=== PATIENT | male | born 1980 | race Hispanic/Latino ===

== ENCOUNTER 2017-05-19 19:38 | Emergency (ER) | payer BC ==
[2017-05-19 20:03] VITALS: BP 110/63; PULSE 88; RESP 16; TEMP 97.7; O2SAT 97
--- NOTE | 2017-05-19 20:40 | ED PDOC ---
HPI: Male Pain Time Seen by Provider: 05/19/17 20:13 Chief Complaint (Nursing): Male Genitourinary Chief Complaint (Provider): pain to right testicle History Per: Patient Additional Complaint(s): 36-year-old male presents to emergency department with pain to right testicle 5 days. Patient states the pain has come and gone for the past week. Today the pain is severe. He went to urgent care first and was told to come to ED. He denies any dysuria or hematuria, no fever or chills, no abdominal pain, nausea or vomiting. Patient rates current pain as 9/10. He states he did not take any meds today for pain relief. Past Medical History Reviewed: Historical Data, Nursing Documentation, Vital Signs Vital Signs: Last Vital Signs Temp 97.7 F 05/19/17 20:01 Pulse 88 05/19/17 20:01 Resp 16 05/19/17 20:01 BP 110/63 05/19/17 20:01 Pulse Ox 97 05/19/17 20:01 - Medical History PMH: No Chronic Diseases - Surgical History Surgical History: Tonsillectomy - Family History Family History: States: No Known Family Hx - Living Arrangements Living Arrangements: With Friends/Others - Social History Current smoker - smoking cessation education provided: No Alcohol: Social Drugs: Denies - Home Medications Home Medications: Ambulatory Orders Medication Instructions Recorded Ibuprofen [Motrin Tab] 800 mg PO Q8 PRN #20 tab 05/19/17 traMADol [Ultram] 50 mg PO TID PRN #15 tab 05/19/17 - Allergies Allergies/Adverse Reactions: Allergies Allergy/AdvReac Type Severity Reaction Status Date / Time No Known Allergies Allergy Verified 05/19/17 20:03 Review of Systems ROS Statement: Except As Marked, All Systems Reviewed And Found Negative Constitutional: Negative for: Fever Respiratory: Negative for: Cough Gastrointestinal: Negative for: Nausea, Vomiting Genitourinary Male: Positive for: Scrotal Pain (right testicle pain x 5 days, denies trauma). Negative for: Dysuria, Frequency, Incontinence, Hematuria, Penile Discharge, Rash, Penile Pain Physical Exam - Reviewed Nursing Documentation Reviewed: Yes Vital Signs Reviewed: Yes - Physical Exam Appears: Positive for: Well, Non-toxic, No Acute Distress Skin: Negative for: Rash Eye Exam: Positive for: Normal appearance Cardiovascular/Chest: Positive for: Regular Rate, Rhythm Respiratory: Positive for: Normal Breath Sounds Gastrointestinal/Abdominal: Positive for: Soft. Negative for: Tenderness, Distended, Guarding Male Genital Exam: Positive for: scrotum tenderness (R). Negative for: no hernia, bleeding, hernia mass, lesions, urethral discharge Back: Negative for: L CVA Tenderness, R CVA Tenderness Extremity: Positive for: Normal ROM Neurologic/Psych: Positive for: Alert, Oriented - Laboratory Results Urine dip results: Positive for: Ketones (trace), Bilirubin (small). Negative for: Leukocyte Esterase, Blood, Nitrate, Glucose, Protein (trace) - ECG O2 Sat by Pulse Oximetry: 97 Pulse Ox Interpretation: Normal - Other Rad Testes US X-Ray: Read By Radiologist X-Ray Interpretation: small bilateral varicoceles, no torsion Medical Decision Making Medical Decision Makin36 year old male with right testicular pain for 5 days Plan: Urine dip PO motrin Testes US Patient aware of ultrasound results, all questions answered. Patient still has pain despite dose of motrin given. Patient given tramadol 50 mg tablet. He was given rx motrin and tramadol and copy of US report. Urology referral provided. Disposition - Clinical Impression Clinical Impression: Testicular pain, right, Varicocele Counseled Patient/Family Regarding: Studies Performed, Diagnosis, Need For Followup, Rx Given - Disposition Referrals: Rodrigo Velarde MD [Staff Provider] - Disposition: Routine/Home Disposition Time: 22:40 Condition: STABLE Additional Instructions: Take motrin for mild pain, tramadol for more severe pain. Rest affected area, avoid heavy lifting. Follow up with urologist in 1-2 days. Prescriptions: Ibuprofen [Motrin Tab] 800 mg PO Q8 PRN #20 tab PRN Reason: Pain, Moderate (4-7) traMADol [Ultram] 50 mg PO TID PRN #15 tab PRN Reason: Pain, Moderate (4-7) Instructions: Varicocele (ED), Testicle Pain (ED) Forms: [employer] (Welsh)
--- NOTE | 2017-05-19 22:24 | US ---
EXAM: US Scrotum EXAM DATE/TIME: 05/19/2017 8:29 PM CLINICAL HISTORY: 36 years old, male; Pain; Scrotum pain; Additional info: Pain to right testicle TECHNIQUE: Real-time ultrasound of the scrotum with color Doppler and image documentation. COMPARISON: No relevant prior studies available. FINDINGS: The testicles are symmetric measuring 5 x 2.1 x 3.1 cm on the right and measuring 4.7 x 2.3 x 2.8 cm on the left. The testicles are homogeneous bilaterally. Color flow and arterial waveforms are demonstrated bilaterally (no torsion). The epidiymis are normal bilaterally. There are small varicoceles bilaterally. IMPRESSION: Small bilateral varicoceles.
== END 2017-05-19 23:17 | disposition home or self-care (01) ==
LOC: H.ER 19:38
DX: I86.1 Scrotal varices (principal)